=== PATIENT | female | born 1955 | race African-American/Black ===

== ENCOUNTER 2016-05-06 23:10 | Inpatient (IN) | payer MEDICAID, OTHER ==
[~2016-05-06] VITALS: Ht 165.1 cm; Wt 74.8 kg
[2016-05-06] MEDS ORDERED: SODIUM CHLORIDE 0.9% 2,000 ML IV ONE (23:43)
[2016-05-07 00:01] LABS: HEMATOCRIT. 34.7 % (36.0-48.0); HEMOGLOBIN. 10.7 g/dL (12.0-16.0); MEAN CORPUSCULAR HEMOGLOBIN 21.9 pg (28.0-32.0); MEAN CORPUSCULAR HGB CONC 30.8 g/dL (31.0-37.0); MEAN CORPUSCULAR VOLUME 71.1 fL (81.0-99.0); MEAN PLATELET VOLUME 8.6 fl (7.4-10.4); PLATELET 200 x1000/uL (130-400); RED BLOOD CELL COUNT 4.88 mill/uL (4.2-5.4)
[2016-05-07 00:02] LABS: DIFFERENTIAL COMMENT 1
[2016-05-07 00:10] LABS: ALBUMIN 4.3 g/dL (3.4-5.0); ANION GAP 19; CALCIUM 8.8 mg/dL (8.5-10.1); CARBON DIOXIDE 21 mEq/L (21-32); CHLORIDE 99 mEq/L (98-107); INDEX HEMOLYSI 1 (1-3); INDEX ICTERIC 1 (1-4); INDEX LIPEMIC 1 (1-3); UREA NITROGEN BLOOD 19 mg/dL (7-21)
[2016-05-07 00:14] LABS: ALANINE AMINOTRANSFERASE 25 IU/L (13-61); BETA HYDROXYBUTYRATE 1.1 mMol/L (0.0-0.3); eGFR > 60 mL/min (>60)
[2016-05-07 00:27] LABS: HYPOCHROMASIA 2+
[2016-05-07 00:30] LABS: PLATELET ESTIMATE NORMAL
[2016-05-07] MEDS ORDERED: SODIUM CHLORIDE 0.9% 1,000 ML IV ONE (00:45)
[2016-05-07 01:27] LABS: LACTIC ACID 4.2 mmol/L (0.4-2.0)
[2016-05-07 01:52] LABS: CLARITY URINE CLEAR (CLEAR); COLOR URINE YELLOW (YELLOW); GLUCOSE URINE 3+ (NEGATIVE); KETONES URINE 1+ (NEGATIVE); LEUKOCYTE ESTERASE URINE NEGATIVE (NEGATIVE); NITRITE URINE NEGATIVE (NEGATIVE); OCCULT BLOOD URINE NEGATIVE (NEGATIVE); PROTEIN URINE NEGATIVE (NEGATIVE); UROBILINOGEN URINE 0.2 E.U./dL (0.2-1.0)
[2016-05-07] MEDS ORDERED: PIPERACILLIN/TAZ 3.375G PREMIX 50 ML IV ONE (02:15)
[2016-05-07] MEDS ORDERED: VANCOMYCIN 1 G PREMIX 200 ML IV ONE (02:15)
[2016-05-07 02:26] LABS: BACTERIA URINE 1+; RBC URINE NONE SEEN /hpf (0-2); SQUAMOUS EPITHELIAL CELL URINE FEW /lpf (RARE/1+); WBC URINE 0-2 /hpf (0-2)
[2016-05-07] MEDS ORDERED: MORPHINE SULFATE 4 MG/ML CPJ (NOT FOR IM USE) IV ONE (02:45)
[2016-05-07] MEDS ORDERED: ONDANSETRON HCL 4MG/2ML VIAL IV ONE ×2 (02:45)
[2016-05-07] MEDS ORDERED: DOCUSATE SODIUM 100MG CAPSULE PO PRN (03:00)
[2016-05-07] MEDS ORDERED: LORAZEPAM 2MG/ML CPJ IV PRN (03:00)
[2016-05-07] MEDS ORDERED: CLONIDINE 0.1MG TABLET PO PRN (03:00)
[2016-05-07] MEDS ORDERED: ACETAMINOPHEN 325MG TABLET PO PRN (03:00)
[2016-05-07] MEDS ORDERED: INSULIN LISPRO 100 UNITS/ML SUBCUT NR (05:08)
[2016-05-07 05:20] LABS: HEMATOCRIT. 29.9 % (36.0-48.0); HEMOGLOBIN. 9.2 g/dL (12.0-16.0); MEAN CORPUSCULAR HEMOGLOBIN 21.7 pg (28.0-32.0); MEAN CORPUSCULAR HGB CONC 30.7 g/dL (31.0-37.0); MEAN CORPUSCULAR VOLUME 70.7 fL (81.0-99.0); MEAN PLATELET VOLUME 8.9 fl (7.4-10.4); PLATELET 174 x1000/uL (130-400); RED BLOOD CELL COUNT 4.23 mill/uL (4.2-5.4); RED CELL DISTRIBUTION WIDTH 24.2 % (11.6-14.6); WHITE BLOOD COUNT 6.8 x1000/uL (4.5-11.0)
[2016-05-07 05:25] LABS: DIFFERENTIAL COMMENT 1
[2016-05-07 05:33] LABS: ANION GAP 16; CALCIUM 7.7 mg/dL (8.5-10.1); CARBON DIOXIDE 24 mEq/L (21-32); CHLORIDE 101 mEq/L (98-107); INDEX HEMOLYSI 1 (1-3); INDEX ICTERIC 1 (1-4); INDEX LIPEMIC 1 (1-3); UREA NITROGEN BLOOD 15 mg/dL (7-21); eGFR > 60 mL/min (>60)
[2016-05-07 05:37] LABS: CREATINE KINASE MB FRACTION 2.1 ng/mL (0.5-3.6); TROPONIN I < 0.02 ng/mL (0.00-0.04)
[2016-05-07] MEDS ORDERED: IOHEXOL-300 100 ML BOTTLE ONE (06:00)
[2016-05-07] MEDS ORDERED: SODIUM CHLORIDE 0.9% 10ML VIAL ONE (06:00)
[2016-05-07 06:09] VITALS: BP 128/77
[2016-05-07] MEDS ORDERED: GLIM2TAB2 PO (06:14)
[2016-05-07] MEDS ORDERED: METF1000 PO (06:14)
[2016-05-07] MEDS ORDERED: DEXTROSE 50% WATER 50ML SYRINGE IV PRN (06:30)
[2016-05-07] MEDS: BLOOD SUGAR DIAGNOSTIC STRIP TEST SCH ×4 (07:05→21:56)
[2016-05-07 07:11] LABS: HYPOCHROMASIA 1+; PLATELET ESTIMATE NORMAL
[2016-05-07 07:12] LABS: ANISOCYTOSIS 3+
[2016-05-07] MEDS: INSULIN LISPRO 100 UNITS/ML SUBCUT SCH ×6 (07:50→21:00)
[2016-05-07 08:00] VITALS: BP 140/88
[2016-05-07] MEDS ORDERED: INSULIN DETEMIR UD 100 UNITS/ML SYR SUBCUT ONE (08:00)
[2016-05-07] MEDS: ENOXAPARIN 40MG/0.4ML SYR SUBCUT SCH (08:30)
[2016-05-07] MEDS: MORPHINE SULFATE 2 MG/ML CPJ (NOT FOR IM USE) IV PRN ×3 (08:32→20:25)
[2016-05-07] MEDS: SODIUM CHLORIDE 0.9% 1,000 ML IV SCH ×2 (08:33→21:53)
[2016-05-07] MEDS ORDERED: GLIMEPIRIDE 2MG TABLET PO SCH (10:45)
[2016-05-07 12:00] VITALS: BP 115/73
[2016-05-07] MEDS: ONDANSETRON HCL 4MG/2ML VIAL IV PRN ×2 (14:25→20:14)
[2016-05-07 15:07] LABS: CREATINE KINASE MB FRACTION 1.5 ng/mL (0.5-3.6); TROPONIN I < 0.02 ng/mL (0.00-0.04)
[2016-05-07 16:00] VITALS: BP 108/72
[2016-05-07 20:00] VITALS: BP 111/70
[2016-05-07] MEDS: INSULIN DETEMIR UD 100 UNITS/ML SYR SUBCUT SCH (21:56)
[2016-05-08] VITALS: BP 124/75
[2016-05-08 04:00] VITALS: BP 113/79
[2016-05-08] MEDS: MORPHINE SULFATE 2 MG/ML CPJ (NOT FOR IM USE) IV PRN ×2 (06:10→12:45)
[2016-05-08] MEDS: BLOOD SUGAR DIAGNOSTIC STRIP TEST SCH ×2 (06:14→12:51)
[2016-05-08 06:16] LABS: BASOPHILS % 0.3 % (0.0-2.0); EOSINOPHILS % 5.6 % (0.0-5.0); HEMATOCRIT. 30.9 % (36.0-48.0); HEMOGLOBIN. 9.3 g/dL (12.0-16.0); LYMPHOCYTES % 32.2 % (20.0-50.0); MEAN CORPUSCULAR HEMOGLOBIN 21.6 pg (28.0-32.0); MEAN CORPUSCULAR HGB CONC 30.1 g/dL (31.0-37.0); MEAN CORPUSCULAR VOLUME 71.7 fL (81.0-99.0); MEAN PLATELET VOLUME 8.7 fl (7.4-10.4); MONOCYTES % 14.6 % (2.0-8.0); NEUTROPHILS % 47.3 % (40.0-76.0); PLATELET 193 x1000/uL (130-400); RED CELL DISTRIBUTION WIDTH 24.2 % (11.6-14.6); WHITE BLOOD COUNT 6.2 x1000/uL (4.5-11.0)
[2016-05-08 06:22] LABS: DIFFERENTIAL COMMENT 1
[2016-05-08 07:04] LABS: ANION GAP 13; CALCIUM 7.8 mg/dL (8.5-10.1); CARBON DIOXIDE 25 mEq/L (21-32); CHLORIDE 110 mEq/L (98-107); INDEX HEMOLYSI 1 (1-3); INDEX ICTERIC 1 (1-4); INDEX LIPEMIC 1 (1-3); UREA NITROGEN BLOOD 10 mg/dL (7-21); eGFR > 60 mL/min (>60)
[2016-05-08] MEDS: INSULIN LISPRO 100 UNITS/ML SUBCUT SCH ×2 (07:50→13:37)
[2016-05-08 07:52] VITALS: BP 114/67
[2016-05-08] MEDS ORDERED: PANTOPRAZOLE SODIUM 40 MG/VIAL IV SCH (09:00)
[2016-05-08] MEDS: INSULIN DETEMIR UD 100 UNITS/ML SYR SUBCUT SCH (09:49)
[2016-05-08] MEDS: SODIUM CHLORIDE 0.9% 1,000 ML IV SCH (10:14)
[2016-05-08] MEDS: ENOXAPARIN 40MG/0.4ML SYR SUBCUT SCH (10:14)
[2016-05-08 12:00] VITALS: BP 110/71
[2016-05-08 15:33] VITALS: BP 117/72
[2016-05-08 15:35] VITALS: BP 117/72
== END 2016-05-08 16:00 | disposition home or self-care (01) | DRG 247 ==
LOC: ER 23:24 → 6WST 05-07 02:48 → SUPCPDRO 05-07 02:53
PROVIDERS: ADMIT Internal Medicine Nephrology; ATTEND Internal Medicine Nephrology
DX: K56.60 Unspecified intestinal obstruction (principal); E11.65 Type 2 diabetes mellitus with hyperglycemia; K76.0 Fatty (change of) liver, not elsewhere classified; I10 Essential (primary) hypertension; D50.9 Iron deficiency anemia, unspecified; E78.00 Pure hypercholesterolemia, unspecified; D72.825 Bandemia; Z85.038 Personal history of other malignant neoplasm of large intestine; Z90.49 Acquired absence of other specified parts of digestive tract; Z91.14 Patient's other noncompliance with medication regimen; Z93.3 Colostomy status; Z88.8 Allergy status to other drugs, medicaments and biological substances; E66.9 Obesity, unspecified; Z68.27 Body mass index [BMI] 27.0-27.9, adult
CPT/HCPCS: 36415; 71010; 71260; 74000; 74177; 80048; 80053; 81001; 82010; 82553; 82962; 83605; 84145; 84484; 85025; 87040; 87086; 93005; 96361; 96365; 96366; 96368; 96372; 96375; 96376; 99285; A4216; C9113; J1650; J1815; J2270; J2405; J2543; J3370; J7030; Q9967

== ENCOUNTER 2017-09-03 22:22 | Emergency (ER) | payer MEDICAID ==
[~2017-09-03] VITALS: Ht 160 cm; Wt 74.0 kg
[~2017-09-03 22:22] MED LIST: GLIM2TAB2 PO; SERT100T PO
[2017-09-03 23:48] LABS: CLARITY URINE CLEAR (CLEAR); COLOR URINE YELLOW (YELLOW); KETONES URINE NEGATIVE (NEGATIVE); LEUKOCYTE ESTERASE URINE NEGATIVE (NEGATIVE); NITRITE URINE NEGATIVE (NEGATIVE); OCCULT BLOOD URINE NEGATIVE (NEGATIVE); PH URINE 5.5 (4.5-8.0); PROTEIN URINE NEGATIVE (NEGATIVE); SPECIFIC GRAVITY URINE 1.009 (1.005-1.030); UROBILINOGEN URINE 0.2 E.U./dL (0.2-1.0)
[2017-09-04 00:17] LABS: BASOPHILS % 0.5 % (0.0-2.0); EOSINOPHILS % 3.1 % (0.0-5.0); HEMOGLOBIN. 10.2 g/dL (12.0-16.0); LYMPHOCYTES % 14.1 % (20.0-50.0); MEAN CORPUSCULAR HEMOGLOBIN 26.1 pg (28.0-32.0); MEAN CORPUSCULAR VOLUME 81.6 fL (81.0-99.0); MEAN PLATELET VOLUME 7.9 fl (7.4-10.4); MONOCYTES % 7.1 % (2.0-8.0); NEUTROPHILS % 75.2 % (40.0-76.0); PLATELET 257 x1000/uL (130-400); RED BLOOD CELL COUNT 3.92 mill/uL (4.2-5.4); RED CELL DISTRIBUTION WIDTH 16.9 % (11.6-14.6)
[2017-09-04 00:25] LABS: CHLORIDE 104 mEq/L (98-107)
[2017-09-04 00:28] LABS: INR 1.1
[2017-09-04] MEDS ORDERED: HYDROCODONE/ACETAMINOPHEN 5/325MG TABLET PO ONE (01:00)
[2017-09-04 04:15] VITALS: BP 135/75
== END 2017-09-04 04:16 | disposition home or self-care (01) ==
LOC: ER 22:22 → CANBEDREQ 09-04 04:48
DX: R68.83 Chills (without fever) (principal); D72.829 Elevated white blood cell count, unspecified; I10 Essential (primary) hypertension; E11.9 Type 2 diabetes mellitus without complications; Z93.3 Colostomy status; Z85.05 Personal history of malignant neoplasm of liver; Z85.07 Personal history of malignant neoplasm of pancreas; Z85.038 Personal history of other malignant neoplasm of large intestine; Z85.118 Personal history of other malignant neoplasm of bronchus and lung
CPT/HCPCS: 36415; 71045; 80053; 81003; 82962; 83605; 84484; 85025; 85610; 87040; 87086; 93005; 99285

== ENCOUNTER 2018-04-01 01:17 | Inpatient (IN) | payer MEDICAID ==
[~2018-04-01] VITALS: Ht 165.1 cm; Wt 76.7 kg
[2018-04-01] MEDS ORDERED: ONDANSETRON HCL 4MG/2ML INJ IV STA (02:43)
[2018-04-01] MEDS ORDERED: SODIUM CHLORIDE 0.9% 1,000 ML IV ONE (02:43)
[2018-04-01] MEDS ORDERED: MORPHINE SULFATE 10 MG/ML CPJ IV ONE (02:45)
[2018-04-01 02:56] LABS: BASOPHILS % 0.9 % (0.0-2.0); EOSINOPHILS % 4.1 % (0.0-5.0); HEMATOCRIT. 35.4 % (36.0-48.0); HEMOGLOBIN. 11.8 g/dL (12.0-16.0); MEAN CORPUSCULAR HEMOGLOBIN 34.9 pg (28.0-32.0); MEAN CORPUSCULAR VOLUME 104.9 fL (81.0-99.0); MEAN PLATELET VOLUME 9.1 fl (7.4-10.4); MONOCYTES % 11.6 % (2.0-8.0); NEUTROPHILS % 54.4 % (40.0-76.0); PLATELET 144 x1000/uL (130-400); RED BLOOD CELL COUNT 3.37 mill/uL (4.2-5.4); RED CELL DISTRIBUTION WIDTH 23.9 % (11.6-14.6)
[2018-04-01 03:01] LABS: INR 1.1; PROTHROMBIN TIME 11.4 sec (9.1-11.1)
[2018-04-01 03:03] LABS: CHLORIDE 107 mEq/L (98-107)
[2018-04-01] MEDS ORDERED: IOHEXOL-300 100 ML BOTTLE ONE (04:06)
[2018-04-01 05:09] LABS: PLATELET ESTIMATE NORMAL
[2018-04-01 05:56] LABS: CLARITY URINE CLEAR (CLEAR); COLOR URINE YELLOW (YELLOW); KETONES URINE NEGATIVE (NEGATIVE); LEUKOCYTE ESTERASE URINE NEGATIVE (NEGATIVE); NITRITE URINE NEGATIVE (NEGATIVE); OCCULT BLOOD URINE NEGATIVE (NEGATIVE); PH URINE 6.5 (4.5-8.0); PROTEIN URINE 1+ (NEGATIVE); SPECIFIC GRAVITY URINE 1.024 (1.005-1.030)
[2018-04-01] MEDS ORDERED: PIPERACILLIN/TAZ 3.375G PREMIX 50 ML IV ONE (06:00)
[2018-04-01] MEDS ORDERED: CLINDAMYCIN 600 MG in DEXTROSE 5% WATER 50 ML IV ONE (06:00)
[2018-04-01] MEDS ORDERED: LEVOFLOXACIN 750MG PREMIX 150 ML IV ONE (06:00)
[2018-04-01] MEDS ORDERED: SODIUM CHLORIDE 0.45% 1,000 ML IV SCH (10:30)
[2018-04-01] MEDS ORDERED: CLONIDINE 0.1MG TABLET PO PRN (10:30)
[2018-04-01] MEDS ORDERED: ONDANSETRON HCL 4MG/2ML INJ IV PRN (10:30)
[2018-04-01] MEDS ORDERED: ACETAMINOPHEN 325MG TABLET PO PRN (10:30)
[2018-04-01] MEDS ORDERED: HYDROMORPHONE HCL/PF 2MG/ML CPJ IV PRN (10:30)
[2018-04-01] MEDS ORDERED: DEXTROSE 50% WATER 50ML SYRINGE IV PRN (10:30)
[2018-04-01 11:00] VITALS: BP 135/63
[2018-04-01] MEDS ORDERED: DIPHENHYDRAMINE 50MG/ML VIAL IV PRN (11:15)
[2018-04-01] MEDS: MORPHINE SULFATE 4 MG/ML CPJ (NOT FOR IM USE) IV PRN (12:36)
[2018-04-01] MEDS: BLOOD SUGAR DIAGNOSTIC STRIP TEST SCH ×3 (12:48→20:59)
[2018-04-01] MEDS: INSULIN LISPRO 100 UNITS/ML SUBCUT SCH ×3 (12:48→21:00)
[2018-04-01] MEDS ORDERED: AMLO-337 MT (18:33)
[2018-04-01] MEDS ORDERED: ATEN50TA PO (18:33)
[2018-04-01] MEDS ORDERED: ATOR20TA65 PO (18:33)
[2018-04-01] MEDS ORDERED: CAPE500T15 MT (18:33)
[2018-04-01 19:38] LABS: FOLIC ACID (FOLATE) SERUM 7.7 ng/mL (>5.38)
[2018-04-01] MEDS: SUCRALFATE 1 G/10 ML UDC PO SCH (20:26)
[2018-04-01] MEDS: SIMETHICONE 80MG TABLET CHEW PO SCH (20:26)
[2018-04-01] MEDS: CAPECITABINE 500 MG XX SCH (20:59)
[2018-04-02 04:00] VITALS: BP 146/77
[2018-04-02] MEDS: OMEPRAZOLE 20MG CAPSULE EXTENDED RELEASE PO SCH (06:59)
[2018-04-02] MEDS: SUCRALFATE 1 G/10 ML UDC PO SCH ×4 (06:59→21:17)
[2018-04-02] MEDS: BLOOD SUGAR DIAGNOSTIC STRIP TEST SCH ×4 (07:00→21:21)
[2018-04-02] MEDS: INSULIN LISPRO 100 UNITS/ML SUBCUT SCH ×4 (07:50→21:00)
[2018-04-02 08:00] VITALS: BP 163/79
[2018-04-02 08:10] LABS: BASOPHILS % 0.9 % (0.0-2.0); EOSINOPHILS % 3.1 % (0.0-5.0); HEMATOCRIT. 34.2 % (36.0-48.0); HEMOGLOBIN. 11.3 g/dL (12.0-16.0); LYMPHOCYTES % 26.1 % (20.0-50.0); MEAN CORPUSCULAR HEMOGLOBIN 34.6 pg (28.0-32.0); MEAN CORPUSCULAR VOLUME 104.7 fL (81.0-99.0); MEAN PLATELET VOLUME 8.5 fl (7.4-10.4); MONOCYTES % 10.3 % (2.0-8.0); NEUTROPHILS % 59.6 % (40.0-76.0); PLATELET 138 x1000/uL (130-400); RED BLOOD CELL COUNT 3.26 mill/uL (4.2-5.4)
[2018-04-02 08:22] LABS: CHLORIDE 104 mEq/L (98-107)
[2018-04-02] MEDS ORDERED: HYDROMORPHONE HCL/PF 2MG/ML CPJ IV PRN (09:30)
[2018-04-02] MEDS: CAPECITABINE 500 MG XX SCH ×2 (09:33→21:17)
[2018-04-02] MEDS: SIMETHICONE 80MG TABLET CHEW PO SCH ×4 (09:33→21:24)
[2018-04-02] MEDS: MORPHINE SULFATE 4 MG/ML CPJ (NOT FOR IM USE) IV PRN (09:37)
[2018-04-02 12:24] VITALS: BP 147/61
[2018-04-02 16:00] VITALS: BP 165/83
[2018-04-02] MEDS ORDERED: POTASSIUM CHLORIDE 20MEQ TABLET SR PO NR (17:30)
[2018-04-03 05:51] LABS: BASOPHILS % 0.9 % (0.0-2.0); EOSINOPHILS % 3.2 % (0.0-5.0); HEMATOCRIT. 33.5 % (36.0-48.0); HEMOGLOBIN. 11.1 g/dL (12.0-16.0); LYMPHOCYTES % 29.1 % (20.0-50.0); MEAN CORPUSCULAR HEMOGLOBIN 34.8 pg (28.0-32.0); MEAN CORPUSCULAR VOLUME 104.9 fL (81.0-99.0); MEAN PLATELET VOLUME 8.4 fl (7.4-10.4); MONOCYTES % 9.9 % (2.0-8.0); NEUTROPHILS % 56.9 % (40.0-76.0); PLATELET 145 x1000/uL (130-400); RED CELL DISTRIBUTION WIDTH 24.6 % (11.6-14.6)
[2018-04-03 06:21] LABS: CHLORIDE 105 mEq/L (98-107)
[2018-04-03] MEDS: SUCRALFATE 1 G/10 ML UDC PO SCH ×4 (06:50→20:22)
[2018-04-03] MEDS: OMEPRAZOLE 20MG CAPSULE EXTENDED RELEASE PO SCH (06:50)
[2018-04-03] MEDS: BLOOD SUGAR DIAGNOSTIC STRIP TEST SCH ×4 (06:55→20:26)
[2018-04-03] MEDS: INSULIN LISPRO 100 UNITS/ML SUBCUT SCH ×4 (06:57→20:27)
[2018-04-03] MEDS: SIMETHICONE 80MG TABLET CHEW PO SCH ×4 (07:54→20:22)
[2018-04-03] MEDS: CAPECITABINE 500 MG XX SCH ×2 (07:55→20:22)
[2018-04-03 08:00] VITALS: BP 130/75
[2018-04-03] MEDS: MORPHINE SULFATE 4 MG/ML CPJ (NOT FOR IM USE) IV PRN ×2 (10:13→22:41)
[2018-04-03 12:00] VITALS: BP 145/65
[2018-04-03 16:00] VITALS: BP 142/73
[2018-04-03 20:00] VITALS: BP 155/79
[2018-04-04] VITALS: BP 136/66
[2018-04-04 04:00] VITALS: BP 155/62
[2018-04-04] MEDS: SUCRALFATE 1 G/10 ML UDC PO SCH ×2 (06:29→12:31)
[2018-04-04] MEDS: OMEPRAZOLE 20MG CAPSULE EXTENDED RELEASE PO SCH (06:29)
[2018-04-04] MEDS: BLOOD SUGAR DIAGNOSTIC STRIP TEST SCH ×2 (06:34→12:17)
[2018-04-04] MEDS: INSULIN LISPRO 100 UNITS/ML SUBCUT SCH ×2 (07:50→12:17)
[2018-04-04 08:00] VITALS: BP 158/70
[2018-04-04] MEDS: SIMETHICONE 80MG TABLET CHEW PO SCH ×2 (08:47→12:31)
[2018-04-04] MEDS: CAPECITABINE 500 MG XX SCH (08:47)
[2018-04-04 09:34] LABS: BASOPHILS % 0.6 % (0.0-2.0); EOSINOPHILS % 1.9 % (0.0-5.0); HEMATOCRIT. 34.7 % (36.0-48.0); HEMOGLOBIN. 11.5 g/dL (12.0-16.0); MEAN CORPUSCULAR HEMOGLOBIN 34.8 pg (28.0-32.0); MEAN CORPUSCULAR VOLUME 105.2 fL (81.0-99.0); MEAN PLATELET VOLUME 7.9 fl (7.4-10.4); MONOCYTES % 10.4 % (2.0-8.0); NEUTROPHILS % 65.1 % (40.0-76.0); PLATELET 148 x1000/uL (130-400); RED CELL DISTRIBUTION WIDTH 24.5 % (11.6-14.6)
[2018-04-04 10:30] LABS: CHLORIDE 101 mEq/L (98-107)
[2018-04-04 12:00] VITALS: BP 144/68
[2018-04-04] MEDS: MORPHINE SULFATE 4 MG/ML CPJ (NOT FOR IM USE) IV PRN (12:00)
[2018-04-04 14:18] VITALS: BP 142/66
== END 2018-04-04 14:43 | disposition home or self-care (01) | DRG 241 ==
LOC: ER 01:17 → 6EST 05:42 → EDBEDREQSVC 05:45 → EDBEDREQ 05:45 → EDBEDREQTM 05:45 → ENRESERV 08:48
PROVIDERS: ADMIT Internal Medicine; ATTEND Internal Medicine
DX: K29.70 Gastritis, unspecified, without bleeding (principal); C78.7 Secondary malignant neoplasm of liver and intrahepatic bile duct; C78.00 Secondary malignant neoplasm of unspecified lung; D64.81 Anemia due to antineoplastic chemotherapy; C18.9 Malignant neoplasm of colon, unspecified; D53.9 Nutritional anemia, unspecified; L02.211 Cutaneous abscess of abdominal wall; Z51.5 Encounter for palliative care; B19.20 Unspecified viral hepatitis C without hepatic coma; E11.9 Type 2 diabetes mellitus without complications; N73.9 Female pelvic inflammatory disease, unspecified; K21.9 Gastro-esophageal reflux disease without esophagitis; K27.9 Peptic ulcer, site unspecified, unspecified as acute or chronic, without hemorrhage or perforation; E87.6 Hypokalemia; I10 Essential (primary) hypertension; Z88.6 Allergy status to analgesic agent; Z88.8 Allergy status to other drugs, medicaments and biological substances; Z79.899 Other long term (current) drug therapy; Z93.3 Colostomy status
CPT/HCPCS: 36415; 71045; 74018; 74177; 80048; 82607; 82746; 82962; 83540; 83550; 83605; 84145; 84443; 93970; 96361; 96374; 96375; 99285; J1200; J1956; J2270; J2405; J2543; J3490; J7030; J7060; Q9967

== ENCOUNTER 2018-07-01 18:51 | Emergency (ER) | payer MEDICAID ==
[~2018-07-01] VITALS: Ht 165.1 cm; Wt 68.0 kg
[~2018-07-01 18:51] MED LIST changes: +AMLO-337 MT; +ATEN50TA PO; +ATOR20TA65 PO; +CAPE500T15 MT
[2018-07-01 18:54] VITALS: BP 111/63
== END 2018-07-02 00:31 | disposition left against medical advice (07) ==
LOC: ER 18:51
DX: R11.2 Nausea with vomiting, unspecified (principal); Z53.21 Procedure and treatment not carried out due to patient leaving prior to being seen by health care provider